=== PATIENT | female | born 1975 | race Two or more races ===

== ENCOUNTER 2024-04-27 05:15 | Emergency (ER) | payer OTHER ==
[~2024-04-27] VITALS: Ht 152.4 cm; Wt 55.3 kg
[2024-04-27] MEDS ORDERED: HYDROCODONE/CHLORPHEN P-STIREX 5 ML ML PO STA (06:12)
[2024-04-27 07:17] LABS: HEMATOCRIT 39.9 % (36.0-45.00); HEMOGLOBIN 13.7 g/dL (12.0-15.00); MEAN CELL VOLUME 92.1 fL (80.00-100.00); MEAN CORPUSCULAR HEMOGLOBIN 31.5 pg (27.00-32.0); MEAN CORPUSCULAR HGB CONC 34.2 g/dl (32.0-36.0); PLATELET COUNT 273 K/uL (150-450); RED BLOOD COUNT 4.33 M/uL (4.00-6.00); RED CELL DISTRIBUTION WIDTH 13.2 % (11.5-14.5)
== END 2024-04-27 09:22 | disposition home or self-care (01) ==
LOC: ER 05:16
DX: R53.81 Other malaise (principal); J00 Acute nasopharyngitis [common cold]; R05.9 Cough, unspecified; Z20.822 Contact with and (suspected) exposure to COVID-19

== ENCOUNTER 2024-05-09 04:38 | Emergency (ER) | payer OTHER ==
[~2024-05-09] VITALS: Ht 142.2 cm; Wt 55.3 kg
[2024-05-09] MEDS ORDERED: HYOSCYAMINE SULFATE 0.125 MG TAB.SUBL SL STA (06:29)
[2024-05-09] MEDS ORDERED: 0.9 % SODIUM CHLORIDE 1,000 ML IV ONE (06:30)
[2024-05-09] MEDS ORDERED: PROMETHAZINE HCL 50 MG/ML AMPUL IM STA (06:30)
[2024-05-09] MEDS ORDERED: FAMOTIDINE/PF 20 MG/2 ML VIAL IV PUSH STA (06:30)
[2024-05-09] MEDS ORDERED: LACTOBACILLUS ACIDOPHILUS 1 CAP CAP PO STA (06:30)
[2024-05-09] MEDS ORDERED: PROMETHAZINE HCL 50 MG/ML AMPUL IM ONE (07:12)
[2024-05-09] MEDS ORDERED: LACTOBACILLUS ACIDOPHILUS 1 CAP CAP PO ONE (07:13)
[2024-05-09] MEDS ORDERED: HYOSCYAMINE SULFATE 0.125 MG TAB.SUBL ONE (07:13)
[2024-05-09] MEDS ORDERED: FAMOtidine 200mg/20ml VIAL ONE ×2 (07:14→10:16)
[2024-05-09 08:19] LABS: HEMATOCRIT 42.4 % (36.0-45.00); HEMOGLOBIN 14.5 g/dL (12.0-15.00); MEAN CELL VOLUME 91.2 fL (80.00-100.00); MEAN CORPUSCULAR HEMOGLOBIN 31.1 pg (27.00-32.0); MEAN CORPUSCULAR HGB CONC 34.1 g/dl (32.0-36.0); PLATELET COUNT 301 K/uL (150-450); RED BLOOD COUNT 4.65 M/uL (4.00-6.00); RED CELL DISTRIBUTION WIDTH 13.6 % (11.5-14.5)
[2024-05-09 08:44] LABS: PH,URINE 5.5 (5.0-8.0); URINE APPEARANCE Clear; URINE BILIRRUBIN Negative (NEGATIVE); URINE BLOOD Negative; URINE COLOR Yellow; URINE GLUCOSE Negative (NEGATIVE); URINE LEUKOCYTE Negative; URINE NITRATE Negative; URINE PROTEIN Negative (NEGATIVE); URINE UROBILINOGEN 0.2 E.U./dl
[2024-05-09 08:48] LABS: URINE BACTERIA 1136.2 uL (0.0-1933); URINE EPITHELIAL CELLS 15.1 uL (0.0-38.8); URINE RBC 3.2 uL (0.0-20.8); URINE WBC 22.8 uL (0.0-23.2)
[2024-05-09 09:30] LABS: CALCIUM 8.7 mg/dL (8.5-10.1); CREATININE SERUM 0.63 mg/dL (0.55-1.02); GFR 100.86; POTASSIUM 3.45 mEq/L (3.5-5.1)
== END 2024-05-09 11:20 | disposition home or self-care (01) ==
LOC: ER 04:39
PROVIDERS: General Practice
DX: K52.89 Other specified noninfective gastroenteritis and colitis (principal)

== ENCOUNTER 2024-05-31 09:04 | Emergency (ER) | payer OTHER ==
[~2024-05-31] VITALS: Ht 142.2 cm; Wt 56.7 kg
[2024-05-31] MEDS ORDERED: KETOROLAC TROMETHAMINE 60 MG VIAL IM ONE ×2 (09:45→09:51)
== END 2024-05-31 10:08 | disposition home or self-care (01) ==
LOC: ER 09:05
DX: M54.89 Other dorsalgia (principal)

== ENCOUNTER 2024-06-24 07:18 | Emergency (ER) | payer OTHER ==
[~2024-06-24] VITALS: Ht 142.2 cm; Wt 56.7 kg
[2024-06-24] MEDS ORDERED: KETOROLAC TROMETHAMINE 60 MG VIAL IM ONE ×2 (08:30→08:44)
== END 2024-06-24 09:43 | disposition home or self-care (01) ==
LOC: ER 07:19
DX: M25.511 Pain in right shoulder (principal); R07.89 Other chest pain

== ENCOUNTER 2024-09-25 09:20 | Emergency (ER) | payer OTHER ==
[~2024-09-25] VITALS: Ht 142.2 cm; Wt 56.7 kg
[2024-09-25 09:42] VITALS: BP 117/60; O2SAT 98
[2024-09-25] MEDS ORDERED: KETOROLAC TROMETHAMINE 60 MG VIAL IM ONE (10:00)
[2024-09-25] MEDS ORDERED: DICLOFENAC SODI75 MG PO (10:31)
== END 2024-09-25 10:38 | disposition home or self-care (01) ==
LOC: ER 09:22
DX: M72.2 Plantar fascial fibromatosis (principal)

== ENCOUNTER 2024-10-29 09:25 | Emergency (ER) | payer OTHER ==
[~2024-10-29] VITALS: Ht 142.2 cm; Wt 56.7 kg
[~2024-10-29 09:25] MED LIST: DICLOFENAC SODI75 MG PO
[2024-10-29] MEDS ORDERED: TRIAMCINOLONE ACETONIDE 40 MG/ML VIAL ONE (10:39)
[2024-10-29] MEDS ORDERED: ORPHENADRINE CITRATE 30 MG/ML AMPUL ONE (10:40)
[2024-10-29] MEDS ORDERED: CELEBREX200MG PO (10:43)
[2024-10-29] MEDS ORDERED: TIZANIDINE HCL2 M1 PO (10:43)
[2024-10-29] MEDS ORDERED: ORPHENADRINE CITRATE 30 MG/ML AMPUL IM ONE (10:45)
[2024-10-29] MEDS ORDERED: TRIAMCINOLONE ACETONIDE 40 MG/ML VIAL IM ONE (10:45)
== END 2024-10-29 10:50 | disposition home or self-care (01) ==
LOC: ER 09:27
DX: S39.012A Strain of muscle, fascia and tendon of lower back, initial encounter (principal)
CPT/HCPCS: 96372; 99282; J1200; J2360

== ENCOUNTER 2024-11-09 10:16 | Emergency (ER) | payer OTHER ==
[~2024-11-09] VITALS: Ht 142.2 cm; Wt 56.7 kg
[~2024-11-09 10:16] MED LIST changes: +CELEBREX200MG PO; +TIZANIDINE HCL2 M1 PO
== END 2024-11-09 13:13 | disposition home or self-care (01) ==
LOC: ER 10:19
DX: R53.81 Other malaise (principal); R05.9 Cough, unspecified; Z20.822 Contact with and (suspected) exposure to COVID-19

== ENCOUNTER 2024-11-19 04:46 | Emergency (ER) | payer OTHER ==
[~2024-11-19] VITALS: Ht 142.2 cm; Wt 56.7 kg
== END 2024-11-19 10:53 | disposition home or self-care (01) ==
LOC: ER 04:49
DX: M54.50 Low back pain, unspecified (principal)

== ENCOUNTER 2024-12-28 21:33 | Emergency (ER) | payer OTHER ==
[~2024-12-28] VITALS: Ht 142.2 cm; Wt 54.0 kg
[2024-12-28] MEDS ORDERED: KETOROLAC TROMETHAMINE 60 MG VIAL IM STA (22:41)
[2024-12-28] MEDS ORDERED: CEFTRIAXONE SODIUM 1,000 MG VIAL IM STA (22:41)
[2024-12-28] MEDS ORDERED: HYDROCODONE/CHLORPHEN P-STIREX 5 ML ML PO STA (22:42)
== END 2024-12-28 22:57 | disposition home or self-care (01) ==
LOC: ER 21:36
DX: J32.9 Chronic sinusitis, unspecified (principal); J03.80 Acute tonsillitis due to other specified organisms
CPT/HCPCS: 96372; 99282; J0696; J1885

== ENCOUNTER 2025-04-21 13:13 | Emergency (ER) | payer OTHER ==
[~2025-04-21] VITALS: Ht 142.2 cm; Wt 56.7 kg
[2025-04-21] MEDS ORDERED: KETOROLAC TROMETHAMINE 60 MG VIAL IM STA (14:55)
[2025-04-21] MEDS ORDERED: ORPHENADRINE CITRATE 30 MG/ML AMPUL IM STA (14:55)
== END 2025-04-21 16:02 | disposition home or self-care (01) ==
LOC: ER 13:13
DX: M62.830 Muscle spasm of back (principal)

== ENCOUNTER → 2025-09-17 | Emergency (ER) | payer OTHER ==
[~2025-09-17] VITALS: Ht 142.2 cm; Wt 56.7 kg
[~2025-09-17] MED LIST changes: +ACETAMINOPHEN 325 MG TABLET PO ONE; +BENZONATATE 200 MG CAPSULE PO ONE; +CETIRIZINE HCL 10 MG TABLET PO ONE; +CETIRIZINE HCL 5MG/5ML BLIST.PACK PO ONE
== END | disposition left against medical advice (07) ==
LOC: ER 16:34
DX: R05.8 Other specified cough (principal); R07.89 Other chest pain; J00 Acute nasopharyngitis [common cold]